=== PATIENT | male | born 1950 | race Caucasian/White ===

== ENCOUNTER 2018-05-26 16:10 | Emergency (ER) | payer MEDICARE ==
[2018-05-26 17:35] LABS: #Lymphocytes 1.1 thou/uL (1.20-3.40); #Monocytes 0.8 thou/uL (0.11-0.59); #Neutrophils 8.5 thou/uL (1.40-6.50); %Basophils 0.4 % (0.0-1.0); %Eosinophils 0.2 % (0.0-10.0); %Lymphocytes 10.7 % (21.0-51.0); %Neutrophils 80.6 % (42.0-75.0); Hemoglobin 13.5 g/dL (14.0-18.0); Mean Corpuscular Hemoglobin 32.8 pg (27.0-31.0); Mean Corpuscular Volume 96.7 fL (78.0-98.0); Mean Platelet Volume 9.2 fL (7.4-10.4); Platelet Count 156 thou/uL (130-400); RBC Distribution Width 13.3 % (11.5-14.5); White Blood Cell (WBC) Count 10.5 thou/uL (4.8-10.8)
[2018-05-26 17:43] LABS: PTT 25.8 SEC (22.9-36.1)
[2018-05-26 18:00] LABS: ALT (SGPT) 26 U/L (8-55); AST (SGOT) 22 U/L (5-34); Albumin 4.4 g/dL (3.4-4.8); Alkaline Phosphatase 59 U/L (40-150); Anion Gap 14 mmol/L (10-20); BUN (Urea Nitrogen) 27 mg/dL (8.4-25.7); Bilirubin, Total 0.8 mg/dL (0.2-1.2); Calc. Creatinine Clearance 0 mL/min (70-130); Calcium 9.7 mg/dL (7.8-10.44); Carbon Dioxide 24 mmol/L (23-31); Chloride 107 mmol/L (98-107); Estimated GFR-MDRD 88; Globulin 2.7 g/dL (2.4-3.5); Glucose 109 mg/dL (80-115); Protein, Total 7.1 g/dL (5.8-8.1); Sodium 141 mmol/L (136-145)
--- NOTE | 2018-05-26 18:36 | CT ---
CT CERVICAL SPINE WITHOUT CONTRAST: 05/26/18 HISTORY: Fall. Pain. COMPARISON: None. TECHNIQUE: CT cervical spine is performed without contrast. Reformatted images are submitted for interpretation. FINDINGS: No craniocervical dissociation. Lateral masses of C1 and C2 as well as the facets have appropriate ar ticulation. Intact odontoid process. Soft tissue neck structures are unremarkable. No prevertebral soft tissue swelling. Upper mediastinum and lung apices are also unremarkable. No high grade central canal stenosis. Varying degrees of foraminal narrowing due to degenerative baker ge. Evaluation is limited by technique. Sagittal reformatted images, there is mild straightening of the normal cervical lordosis which is pre sumed to be positional versus muscle spasm versus cervical collar placement. Current study is not stacey lored to assess for ligamentous injury. Cervical spine vertebral body height is maintained. There are no fractures. IMPRESSION: No fractures. POS: [facility]
[2018-05-26 18:53] LABS: CKMB 4.5 ng/mL (0-6.6); Troponin I Less than 0.010 ng/mL (< 0.028)
--- NOTE | 2018-05-26 19:24 | CT ---
HEAD CT WITHOUT CONTRAST 05/26/18 HISTORY: Patient fell last night. Patient has a small amount of blood in the nose. COMPARISON: None. TECHNIQUE: Noncontrast head CT is performed from skull base to skull vertex. FINDINGS: No parenchymal hemorrhage. No extra-axial hematoma. No midline shift. Basilar cisterns are patent. Br ain volume, age appropriate. Cortical barrett-white matter differentiation is preserved. Ventricles and sulci are patent and symmetric. White matter hypodensities due to chronic small vessel ischemic flores e are noted. The calvarium is intact. Adequate aeration of the mastoid air cells. There is partial opacification o f the right sphenoid sinus. There is hyperdense material in the right maxillary sinus with an air flu id level. Additional mixed attenuation is noted in the posterior nasal cavity. IMPRESSION: 1. No intracranial posttraumatic sequela. 2. Possible maxillofacial posttraumatic sequela. Refer to separate face CT report for further de tail. POS: [facility]
--- NOTE | 2018-05-26 20:07 | CT ---
MAXILLOFACIAL CT WITHOUT CONTRAST: 05/26/18 HISTORY: Patient fell last night. Patient on blood thinners. Patient feels like his nose is broken. Patient is still having a small amount of blood from the nose. COMPARISON: None. TECHNIQUE: Maxillofacial CT is performed in the axial plane. Reformatted images are submitted for interpretation . FINDINGS: The visualized brain parenchyma is unremarkable. Bilateral ocular lenses are appropriately located. B oth globes are intact. Retrobulbar fat is preserved. Symmetric attenuation of the optic nerve and ocu lar rectus muscles. There appears to be secretions/blood in the posterior nasal cavity as well as the nasopharynx. There are no obvious masses in the oral cavity. Midline fatty raphae of the tongue is preserved. Epiglottis has a normal caliber. The visualized prevertebral soft tissue structures are unremarkable. The visu alized parotid and submandibular glands are unremarkable. There is mild villous mandibularis changes noted. The mandible and maxilla are intact. Pterygoid plat es are intact. The osseous margins of the orbits are also intact. There is soft tissue attenuation in the right osteomeatal complex. Left osteomeatal complex is patent . There is mild mucosal disease in the left maxillary sinus, left frontal sinus and scattered through out the ethmoid air cells and right sphenoid sinus. There is an air fluid level with subtle hyperdens e material in the right maxillary sinus suggesting possible blood products. There appear to be bilate ral nasal bone fractures with soft tissue swelling. On the coronal reformatted images, the nasal sept um appears to be intact. Zygomatic arches are intact. IMPRESSION: Bilateral nasal bone fractures with associated soft tissue swelling. Posttraumatic blood in the nasal cavity and right maxillary sinus is noted. POS: [facility]
== END 2018-05-26 19:15 | disposition home or self-care (01) ==
LOC: ERS 16:10
DX: S02.2XXA Fracture of nasal bones, initial encounter for closed fracture (principal); E03.9 Hypothyroidism, unspecified; E78.5 Hyperlipidemia, unspecified; I10 Essential (primary) hypertension; F32.9 Major depressive disorder, single episode, unspecified; Z79.82 Long term (current) use of aspirin; Z79.899 Other long term (current) drug therapy; W18.30XA Fall on same level, unspecified, initial encounter
CPT/HCPCS: 70450; 70486; 72125; 80053; 82553; 84484; 85025; 85610; 85730; 93005

== ENCOUNTER 2019-01-11 08:06 | Outpatient (CLI) | payer MEDICARE ==
[~2019-01-11 08:06] MED LIST: Gadobenate Dimeglumine 529 MG/1 ML (20ML VIAL) ONE
--- NOTE | 2019-01-11 10:52 | MRI ---
MRI BRAIN WITH AND WITHOUT CONTRAST: Date: 01/11/19 HISTORY: Balance disorder. Tremors. COMPARISON: None. TECHNIQUE: MRI brain performed with and without intravenous Gadolinium administration. Multisequential, multipla erick imaging performed. FINDINGS: No hemorrhage on the axial gradient echo sequence. Calvarium has a normal T1 marrow signal intensity. Midline brain parenchymal structures are unremarka ble. No parenchymal mass, mass effect, or midline shift. Brain volume is age-appropriate. Cortical barrett-wh ite matter differentiation is preserved. Ventricles and sulci are patent and symmetric. T2 and FLAIR white matter hyperintensities due to chronic small vessel ischemic change of the white m atter. Minimal cavitary right frontal periventricular white matter lacunar infarct. Additionally, cavitation involving the left cerebellar hemisphere due to remote insult. Central arterial flow-voids are maintained. Absent restricted diffusion. Mild mucosal disease of the paranasal sinuses. No pathologic enhancement of the brain parenchyma. IMPRESSION: 1. Absent restricted diffusion. No acute infarct. 2. Chronic small vessel ischemic change of white matter. POS: [facility]
== END 2019-01-11 08:07 | disposition home or self-care (01) ==
LOC: BICMRI 08:06
PROVIDERS: ATTEND Internal Medicine
DX: R26.89 Other abnormalities of gait and mobility (principal); R25.1 Tremor, unspecified; H57.02 Anisocoria
CPT/HCPCS: 70553; 82274; A9577

== ENCOUNTER 2019-01-18 08:35 | Outpatient (CLI) | payer MEDICARE ==
--- NOTE | 2019-01-18 09:42 | ULT ---
RIGHT UPPER QUADRANT ULTRASOUND: INDICATION: Hepatic steatosis (fatty liver). FINDINGS: There is increased echogenicity of the imaged hepatic parenchyma. Portions of the liver are not well assessed due to decreased acoustic penetration notably at the left hepatic lobe. There is mild incr eased echogenicity of the gallbladder lumen and the gallbladder is partially contracted. This indica marlene sludge and/or gravel-like cholelithiasis. No significant gallbladder wall thickening. The commo n duct is partially obscured. Imaged aspects are nondilated measuring approximately 4 mm. No ascite s is seen. IMPRESSION: 1. Evidence of hepatic steatosis. 2. There is limited intraabdominal visualization at the right upper quadrant due to persistent areas of shadowing. 3. Probable gallbladder sludge versus gravel-like cholelithiasis. POS: [facility]
== END 2019-01-18 08:36 | disposition home or self-care (01) ==
LOC: BICULT 08:35
PROVIDERS: ATTEND Internal Medicine
DX: K76.0 Fatty (change of) liver, not elsewhere classified (principal); R74.0 Nonspecific elevation of levels of transaminase and lactic acid dehydrogenase [LDH]
CPT/HCPCS: 76705

== ENCOUNTER 2019-01-30 09:36 | Outpatient (CLI) | payer MEDICARE ==
--- NOTE | 2019-01-30 11:48 | ULT ---
ULTRASOUND DOPPLER DUPLEX CAROTID: DATE: 01-30-19 HISTORY: 68-year-old male with cerebral infarction. TECHNIQUE: Grayscale, color flow, and spectral analysis of major arteries of neck. FINDINGS: Pulse Doppler waveforms are normal. There is mild calcified plaque at the bilateral carotid bulbs. [facility] systolic velocities in the internal carotid arteries are 55 cm/s on the right and 50 cm/s on the left. ICA/CCA ratios are 0.8 on the right and 0.5 on the left. Vertebral artery flow is antegr rené bilaterally. IMPRESSION: 1. Mild atherosclerotic carotid plaque bilaterally. 2. No hemodynamically significant stenosis. POS: [facility]
== END 2019-01-30 09:37 | disposition home or self-care (01) ==
LOC: BICULT 09:36
PROVIDERS: ATTEND Internal Medicine
DX: I63.09 Cerebral infarction due to thrombosis of other precerebral artery (principal); I65.23 Occlusion and stenosis of bilateral carotid arteries
CPT/HCPCS: 93880

== ENCOUNTER 2019-04-06 13:55 | Outpatient (CLI) | payer MEDICARE ==
--- NOTE | 2019-04-06 15:09 | RAD ---
AP CHEST: HISTORY: MRI screening. FINDINGS: Postop sternotomy change. There is an electronic device overlying the left lower chest. The lungs a re clear. Vasculature is normal. IMPRESSION: Small electronic device, consistent with a loop recorder, identified, overlying the left chest. The chest is otherwise unremarkable. POS: [facility]
--- NOTE | 2019-04-06 15:55 | MRI ---
MRI LUMBAR SPINE WITHOUT CONTRAST: INDICATIONS: Sciatica, left side. Low back pain. TECHNIQUE: Multiplanar, multisequential imaging of the lumbar spine obtained. FINDINGS: Lumbar vertebrae maintain height and alignment. Degenerative disk and endplate changes are prominent at L4-L5 and at L5-S1. Loss of disk space at both these levels, most severe at L5-S1. Endplate marley ma at L4-L5, consistent with degenerative endplate change. At L1-L2, minimal disk bulge. No significant central canal or foraminal stenosis. At L2-L3, mild disk bulge. Facet and ligamentous hypertrophy is present. Posterior epidural fat. T hese changes result in mild central canal stenosis. At L3-L4, mild disk bulge. The posterior epidural fat is prominent, and there is mild to moderate fa cet and ligamentous hypertrophy. These changes compress the thecal sac, resulting in moderate centra l canal stenosis. At L4-L5, degenerative disk changes, as noted above, with a diffuse broad-based disk protrusion compr essing the thecal sac. Facet and ligamentous hypertrophy is prominent, and there is posterior epidur al fat. These changes compress the thecal sac, resulting in severe central canal stenosis. Bilatera l foraminal stenosis, more severe on the left. At L5-S1, severe degenerative disk change with loss of disk space. Posterior disk bulge and hypertro phic changes abut the thecal sac. Facet hypertrophy. No significant central canal stenosis. Bilate ral foraminal stenosis due to the hypertrophic change. IMPRESSION: 1. Degenerative disk and endplate changes are prominent at L4-L5 and at L5-S1. 2. Severe central canal stenosis at L4-L5, as described above. POS: [facility]
== END 2019-04-06 13:56 | disposition home or self-care (01) ==
LOC: BICMRI 13:55
PROVIDERS: ATTEND Internal Medicine
DX: M51.16 Intervertebral disc disorders with radiculopathy, lumbar region (principal); M51.37 Other intervertebral disc degeneration, lumbosacral region; M48.061 Spinal stenosis, lumbar region without neurogenic claudication
CPT/HCPCS: 71045; 72148

== ENCOUNTER 2019-06-12 09:19 | Emergency (ER) | payer MEDICARE ==
[2019-06-12] MEDS ORDERED: Lorazepam 2 MG/ML VIAL ONE (10:40)
[2019-06-12] MEDS ORDERED: Ondansetron PF 4 MG/2 ML Vial ONE (10:40)
[2019-06-12] MEDS ORDERED: Haloperidol Lactate 5 MG/ML VIAL ONE (10:40)
[2019-06-12 11:18] LABS: #Lymphocytes 0.5 thou/uL (1.20-3.40); #Monocytes 0.6 thou/uL (0.11-0.59); #Neutrophils 10.1 thou/uL (1.40-6.50); %Basophils 0.1 % (0.0-1.0); %Eosinophils 0.2 % (0.0-10.0); %Lymphocytes 4.8 % (21.0-51.0); %Neutrophils 89.9 % (42.0-75.0); Hemoglobin 13.7 g/dL (14.0-18.0); Mean Corpuscular Hemoglobin 32.9 pg (27.0-31.0); Mean Corpuscular Volume 96.9 fL (78.0-98.0); Mean Platelet Volume 8.2 fL (7.4-10.4); Platelet Count 118 thou/uL (130-400); RBC Distribution Width 13.6 % (11.5-14.5); Red Blood Cell (RBC) Count 4.16 mill/uL (4.70-6.10); White Blood Cell (WBC) Count 11.2 thou/uL (4.8-10.8)
[2019-06-12 11:19] LABS: Platelet Morphology Comment Appears Decreased; RBC Morphology Normal
[2019-06-12 11:21] LABS: Acetaminophen Less than 6.0 mcg/mL (10.0-30.0); Alcohol Less than 10 mg/dL (Less than 10); Salicylate Less than 8.0 mg/dL (15.0-30.0)
[2019-06-12 11:23] LABS: ALT (SGPT) 73 U/L (8-55); AST (SGOT) 78 U/L (5-34); Albumin 4.9 g/dL (3.4-4.8); Alkaline Phosphatase 74 U/L (40-150); Anion Gap 22 mmol/L (10-20); BUN (Urea Nitrogen) 16 mg/dL (8.4-25.7); Bilirubin, Total 1.2 mg/dL (0.2-1.2); CK (CPK) 540 U/L (30-200); Calc. Creatinine Clearance 0 mL/min (70-130); Calcium 10.4 mg/dL (7.8-10.44); Carbon Dioxide 22 mmol/L (23-31); Chloride 99 mmol/L (98-107); Estimated GFR-MDRD 67; Globulin 2.8 g/dL (2.4-3.5); Glucose 223 mg/dL (80-115); Lipase 66 U/L (8-78); Potassium 4.1 mmol/L (3.5-5.1); Protein, Total 7.7 g/dL (5.8-8.1); Sodium 139 mmol/L (136-145)
== END 2019-06-12 12:34 | disposition home or self-care (01) ==
LOC: ERS 09:19
DX: R25.1 Tremor, unspecified (principal); E03.9 Hypothyroidism, unspecified; E78.5 Hyperlipidemia, unspecified; I10 Essential (primary) hypertension; F32.9 Major depressive disorder, single episode, unspecified; Z79.82 Long term (current) use of aspirin; Z79.899 Other long term (current) drug therapy; Z79.01 Long term (current) use of anticoagulants
CPT/HCPCS: 36415; 36416; 80053; 80307; 82140; 82550; 83690; 84146; 84443; 85025; 96365; 96375; J1630; J2060; J2405; J3411; J3490

== ENCOUNTER 2019-08-03 20:05 | Inpatient (IN) | payer MEDICARE ==
[~2019-08-03 20:05] MED LIST changes: -Gadobenate Dimeglumine 529 MG/1 ML (20ML VIAL) ONE; +ISOVUE-370 76%-LOCM 1 ML ONE
[2019-08-03] MEDS ORDERED: Fentanyl 100 MCG/2 ML VIAL ONE (20:08)
[2019-08-03] MEDS ORDERED: fentaNYL Citrate/PF 2,000 MCG in Sodium Chloride 0.9% 60 ML IV SCH (20:11)
[2019-08-03] MEDS ORDERED: Norepinephrine 4 MG/4 ML VIAL ONE (20:16)
[2019-08-03 20:24] LABS: #Basophils 0.1 thou/uL (0.0-0.2); #Eosinphils 0.1 thou/uL (0.0-0.7); #Monocytes 0.9 thou/uL (0.11-0.59); #Neutrophils 6.3 thou/uL (1.40-6.50); %Basophils 0.7 % (0.0-1.0); %Eosinophils 1.1 % (0.0-10.0); %Lymphocytes 35.2 % (21.0-51.0); %Monocytes 7.9 % (0.0-10.0); %Neutrophils 55.2 % (42.0-75.0); Hemoglobin 13.1 g/dL (14.0-18.0); Mean Corpuscular HGB CONC 33.6 g/dL (32.0-36.0); Mean Corpuscular Hemoglobin 34.9 pg (27.0-31.0); Mean Platelet Volume 8.9 fL (7.4-10.4); Platelet Count 123 thou/uL (130-400); RBC Distribution Width 12.6 % (11.5-14.5); Red Blood Cell (RBC) Count 3.77 mill/uL (4.70-6.10); White Blood Cell (WBC) Count 11.4 thou/uL (4.8-10.8)
[2019-08-03] MEDS ORDERED: Norepinephrine 8 MG/250 ML BAG IVPB PRN (20:33)
--- NOTE | 2019-08-03 20:45 | RAD ---
PORTABLE CHEST: 08/03/19 PROVIDED CLINICAL HISTORY: Altered mental status. FINDINGS: Comparison 04/06/19. The cardiac silhouette appears enlarged, which may be at least partially on the basis of portable te chnique. Median sternotomy changes are noted. Endotracheal tube is noted, the tip of which projects slightly caudal to the level of the thoracic inlet. Interval right subclavian central line is noted, the tip of which projects over the expected location of right atrium. Enteric catheter is noted, tip of which overlies the left upper quadrant. No focal consolidation evident. The supine nature of the e xamination is limited in evaluation for pleural fluid or pneumothorax, without gross evidence for suc h. IMPRESSION: Lines and tubes as above. POS: [facility]
[2019-08-03 20:46] LABS: Actual Bicarbonate (HCO3a) 9.8 mEq/L (22-28); Analyzer IN Cardio ER; Base Excess (BEa) -19.6 mEq/L (-2.0 to +3.0); CO2 Tension 35.2 mmHg (35.0-45.0); Calcium, Ionized 1.15 mmol/L (1.12-1.30); Carboxyhemoglobin (COHb) 0.1 gm% (0.0-3.0); Hemoglobin (Hb) 13.6 g/dL (14.0-18.0); O2 Tension (PaO2) 283.3 mmHg (> 80.0)
[2019-08-03 20:48] LABS: ALT (SGPT) 182 U/L (8-55); AST (SGOT) 218 U/L (5-34); Albumin 4.2 g/dL (3.4-4.8); Alkaline Phosphatase 67 U/L (40-150); Anion Gap 25 mmol/L (10-20); BUN (Urea Nitrogen) 17 mg/dL (8.4-25.7); Bilirubin, Total 0.2 mg/dL (0.2-1.2); CK (CPK) 133 U/L (30-200); Calc. Creatinine Clearance 0 mL/min (70-130); Calcium 8.9 mg/dL (7.8-10.44); Carbon Dioxide 13 mmol/L (23-31); Chloride 106 mmol/L (98-107); Estimated GFR-MDRD Greater than 90; Globulin 2.1 g/dL (2.4-3.5); Glucose 219 mg/dL (80-115); Potassium 4.6 mmol/L (3.5-5.1); Protein, Total 6.3 g/dL (5.8-8.1); Sodium 139 mmol/L (136-145)
[2019-08-03] MEDS ORDERED: Nitroglycerin 100MG/250ML BOT 250 ML ONE (20:54)
[2019-08-03] MEDS ORDERED: Lidocaine 1% (PF) 30 ML VIAL ONE (20:54)
[2019-08-03] MEDS ORDERED: Heparin 25,000 units/D5W 500 ML IV SCH (21:00)
[2019-08-03 21:15] LABS: INR-International Normal Ratio 1.1; Prothrombin Time 13.9 SEC (12.0-14.7)
[2019-08-03 21:15] LABS: pH, Arterial 7.06 (7.35-7.45)
[2019-08-03 21:16] LABS: Puncture Site ALINE
[2019-08-03 21:16] LABS: PTT 30.9 SEC (22.9-36.1)
[2019-08-03 21:18] LABS: Bilirubin Negative (Negative); Blood, Urine Moderate (Negative); Glucose, Urine (Dipstick) 100 mg/dL (Negative); Leukocyte Negative (Negative); Nitrite Negative (Negative); Protein, Urine (Dipstick) 100 mg/dL (Neg-Trace); Urobilinogen 0.2 mg/dL (Less than 2)
[2019-08-03 21:21] LABS: Clarity Cloudy (Clear)
[2019-08-03 21:23] LABS: RBC/HPF 21-50 HPF (0-3); Squamous Epithelial 0-3 HPF (0-3); WBC/HPF 0-3 HPF (0-3)
[2019-08-03 21:24] LABS: Acetaminophen Less than 6.0 mcg/mL (10.0-30.0); Alcohol 297 mg/dL (Less than 10); Lipase 142 U/L (8-78); Magnesium 2.6 mg/dL (1.6-2.6); Salicylate Less than 8.0 mg/dL (15.0-30.0)
[2019-08-03 21:25] LABS: Bacteria/HPF 2+ HPF (None Seen)
[2019-08-03 21:26] LABS: Actual Bicarbonate (HCO3a) 12.7 mEq/L (22-28); Analyzer IN Cardio ER; Base Excess (BEa) -12.9 mEq/L (-2.0 to +3.0); CO2 Tension 29.1 mmHg (35.0-45.0); Calcium, Ionized 1.09 mmol/L (1.12-1.30); Carboxyhemoglobin (COHb) 0.4 gm% (0.0-3.0); Hemoglobin (Hb) 14.6 g/dL (14.0-18.0); Potassium - ABG Lab 3.99 mmol/L (3.70-5.30); pH, Arterial 7.26 (7.35-7.45)
[2019-08-03 21:29] LABS: Amphetamine Not Detected (NotDetected); Barbiturates Screen Not Detected (NotDetected); Benzodiazepine Screen Not Detected (NotDetected); Cocaine Metabolite Screen Not Detected (NotDetected); Medtox Control Line Valid? VALID (VALID); Medtox Reader # READER 4; Methadone Not Detected (NotDetected); Methamphetamine Not Detected (NotDetected); Opiate Screen Detected (NotDetected); Oxycodone Screen Not Detected (NotDetected); Phencyclidine (PCP) Not Detected (NotDetected); THC/Cannabinoid Screen Not Detected (NotDetected); Tricyclic Screen Not Detected (NotDetected)
--- NOTE | 2019-08-03 22:06 | CT ---
EXAM: CT brain without contrast HISTORY: Found down in bathtub with altered mental status. COMPARISON: 05/26/2018 TECHNIQUE: Multiple contiguous axial images were obtained and a CT of the brain without contrast. FINDINGS: There are scattered hypodensities in the subcortical and periventricular white matter consi stent with small vessel ischemic disease. There is no evidence of hydrocephalus, intracranial hemorrhage, or extra-axial fluid collection. The calvarium and overlying soft tissues are unremarkable. The visualized paranasal sinuses and masto id air cells are well aerated. IMPRESSION: No evidence of acute intracranial abnormality
[2019-08-03 22:07] LABS: ALV-art Gradient 315.025 (0-20); Puncture Site ALINE
--- NOTE | 2019-08-03 22:18 | CT ---
EXAM: CTA of the chest HISTORY: Found down in bathtub unresponsive COMPARISON: None TECHNIQUE: Multiple contiguous axial images were obtained a CTA of the chest with contrast per pulmon zach embolism protocol. 3-D oblique MIP reformats and direct coronal reformats were performed. FINDINGS: HEART: Normal in size without focal cardiac abnormality. PULMONARY ARTERIES: Normal in caliber without filling defects to suggest pulmonary emboli. MEDIASTINUM: No hilar or mediastinal lymphadenopathy. An endotracheal tube is seen in good position a siria the tali. LUNGS: Bibasilar atelectasis is seen. PLEURAL SPACE: No pleural effusion or pneumothorax. CHEST WALL SOFT TISSUES: There is a central venous catheter with its tip in the superior vena cava. VISUALIZED OSSEOUS STRUCTURES: The patient is status post sternotomy. Degenerative changes are seen i n the spine. There are fractures of the anterior right fifth and sixth ribs and of the left lateral sixth rib. IMPRESSION: No evidence of pulmonary thromboembolism 2. Bilateral rib fractures 3. Bibasilar atelectasis
--- NOTE | 2019-08-03 22:23 | CT ---
CT Abdomen Pelvis W Con: 08/03/2019 12:00 AM CLINICAL INFORMATION: Found down in bathtub with unresponsiveness COMPARISON: None. TECHNIQUE: Multiple contiguous axial images were obtained and a CT of the abdomen and pelvis with IV contrast. C oronal and sagittal reformats were performed. FINDINGS: Abdomen: Liver: within normal limits. Bile Ducts: Normal caliber. Gallbladder: No calcified gallstones. Normal caliber wall. Pancreas: within normal limits. Spleen: within normal limits. Adrenals: within normal limits. Kidneys: Bilateral cysts measuring up to 2.0 cm in size. Pelvis: Reproductive Organs: No pelvic masses. Ureters: within normal limits. Bladder: Contains a Franks catheter. Peritoneum: No ascites or free air, no fluid collection. Bowel: Normal caliber. NG tube seen in the stomach. Normal appendix. Scattered diverticula in the col on. Mesentery and Retroperitoneum: No enlarged mesenteric or retroperitoneal lymph nodes. Vessels: There is a left femoral arterial catheter. Atherosclerotic calcifications in the aorta. Abdominal Wall: within normal limits. Bones: Degenerative changes in the spine. IMPRESSION: 1. No evidence of acute intraabdominal or pelvic abnormality. 2. Diverticulosis 3. Bilateral renal cysts
[2019-08-03] MEDS ORDERED: Ventilator Sedation Protocol 1 EACH FS ONE (22:28)
[2019-08-03 22:29] LABS: INR-International Normal Ratio 1.1; PTT 35.5 SEC (22.9-36.1); Prothrombin Time 14.2 SEC (12.0-14.7)
[2019-08-03] MEDS ORDERED: DISCONTINUE PREVIOUS NARCOTIC PAIN MEDICATIONS AND BENZODIAZEPINES FS SCH (22:29)
[2019-08-03] MEDS ORDERED: Fentanyl BOLUS 250 ML IVPB PRN (22:29)
[2019-08-03] MEDS ORDERED: Propofol BOLUS 1,000 MG/100 ML VIAL IV PRN (22:29)
[2019-08-03] MEDS ORDERED: Morphine 2 MG/ML SYRINGE SLOW IVP PRN (22:29)
[2019-08-03] MEDS ORDERED: Ondansetron ODT 4 MG TAB PO PRN (22:30)
[2019-08-03] MEDS ORDERED: Ondansetron PF 4 MG/2 ML Vial IVP PRN (22:30)
[2019-08-03] MEDS ORDERED: Acetaminophen 650 MG Suppository PR PRN (22:30)
[2019-08-03] MEDS ORDERED: cefTRIAXone\\ROCEPHIN 1 GM VIAL ONE (22:37)
[2019-08-03] MEDS ORDERED: Aspirin Chewable 81 MG TAB ONE (22:37)
[2019-08-03] MEDS ORDERED: Propofol 1,000 MG/100 ML VIAL IV ONE (22:59)
[2019-08-03] MEDS ORDERED: Heparin 10,000 UNITS/ 10 ML VIAL SLOW IVP SCH (23:00)
[2019-08-03] MEDS ORDERED: Magnesium 2 GM/50 ML BAG (IN WATER) ONE (23:14)
[2019-08-04] MEDS: Sodium Chloride 0.9% 1,000 ML IV SCH ×2 (02:07→07:51)
--- NOTE | 2019-08-04 02:27 | CON ---
DATE OF CONSULTATION: 08/03/2019 REASON FOR CONSULTATION: [id number] cardiac arrest. HISTORY OF PRESENT ILLNESS: Mr. August Montiel is a 69-year-old gentleman, patient of Dr. Andrea Ma. The patient was at home, his heard him fall. She went to the other room and he was unresponsive. She went and immediately called her son and he recommended calling an ambulance, which was done. They arrived and the patient was in cardiac arrest. Chest compressions were started. The patient was intubated and chest compressions were done on the way here. The nurses indicated that the patient was very cyanotic on arrival here. The patient was subsequently ultimately successfully resuscitated. His initial rhythm was asystole. Ultimately, they were able to get him back to heart rhythm, but pulseless electrical activity and finally they were able to maintain sinus rhythm with a blood pressure. Arterial pH after he had been resuscitated for quite some time was 7.06 of pH. The pCO2 is 35 at that point. The patient remains unresponsive. PAST MEDICAL HISTORY: 1. History of coronary bypass grafting according to the notes x4. 2. History of unexplained stroke. He had a LINQ in place. REVIEW OF SYSTEMS: Obviously unobtainable. He is intubated and unresponsive. PHYSICAL EXAMINATION: The patient is unresponsive even to deep pain with some sternal pressure and also painful stimuli to the toes, there is no response. However, the nurse did indicate that he is somewhat breathing over the ventilator. LUNGS: Clear anterolaterally. Cardiac. He is tachycardic, . There is a 2/6 systolic murmur in the left mid sternal border. No diastolic murmur. No S3. ABDOMEN: Soft and nontender. EXTREMITIES: Warm and dry. No clubbing. No cyanosis or edema. He has good peripheral pulses. OTHER PERTINENT LABORATORY DATA: A repeat blood gas has been obtained and pH is over 7.2. He has received several episodes of bicarbonate. He does have a positive alcohol level of 297. An EKG did show severe ST depression in the anterior leads, but apparently that was when he was very acidotic. Now, the EKG has only mild nonspecific changes. ASSESSMENT: 1. A sudden loss of consciousness, very suspicious for dysrhythmia. 2. Asystole on arrival here. 3. Previous bypass surgery. 4. Possible myocardial infarction. no ST elevations at the present time. PLAN: 1. Continue supportive care. 2. Arrangements are being made to do CT of the head and chest. 3. Anticoagulation. 4. Cardiac enzymes. 5. Discussed with the family. It is unclear whether the patient will wake up after the hypoxic injury. These had occurred hopefully, he will become responsive. It is difficult to say at this point. In addition the elevated alcohol levels may be playing some role or only in his suppression, although the said he was awake and alert before he lost consciousness. Prognosis is very guarded. Unfortunately, has multiple negative prognostic findings including asystole on arrival, severe acidosis. He was pH 7.06 after being resuscitated, most likely was quite acidotic prior to that, more acidotic than this. Supportive care will be given. Job ID: [id number]
[2019-08-04 03:57] LABS: Band 11 % (5-11); Hemoglobin 14.6 g/dL (14.0-18.0); Lymphocytes 7 % (21-51); MDiff Complete? YES; Mean Corpuscular HGB CONC 33.4 g/dL (32.0-36.0); Mean Corpuscular Hemoglobin 33.9 pg (27.0-31.0); Mean Platelet Volume 9.7 fL (7.4-10.4); Monocytes 4 % (0-10); Neutrophil 78 % (42-75); Platelet Count 185 thou/uL (130-400); Platelet Morphology Comment Appears Adequate; RBC Distribution Width 12.9 % (11.5-14.5); Red Blood Cell (RBC) Count 4.31 mill/uL (4.70-6.10)
[2019-08-04 03:58] LABS: PTT Greater than 250.0 SEC (22.9-36.1)
[2019-08-04 04:29] LABS: Anion Gap 33 mmol/L (10-20); BUN (Urea Nitrogen) 24 mg/dL (8.4-25.7); Calc. Creatinine Clearance 58 mL/min (70-130); Calcium 8.9 mg/dL (7.8-10.44); Carbon Dioxide 8 mmol/L (23-31); Chloride 103 mmol/L (98-107); Estimated GFR-MDRD 50; Glucose 348 mg/dL (80-115); Potassium 2.6 mmol/L (3.5-5.1); Sodium 141 mmol/L (136-145)
[2019-08-04] MEDS ORDERED: NS 0.9% w/ 20 MEQ KCL 1,000 ML IV PRN ×2 (05:50)
[2019-08-04] MEDS ORDERED: CCU Electrolyte Replacement 1 EACH IVPB ONE (05:50)
[2019-08-04] MEDS ORDERED: D5 1/2 NS w/20 mEq KCL 1,000 ML IV PRN (05:50)
[2019-08-04] MEDS ORDERED: Dextrose 5 %-0.45 % NaCl 1,000 ML IV PRN (05:50)
[2019-08-04] MEDS ORDERED: Sodium Chloride 0.9% 1,000 ML IV PRN ×4 (05:50)
[2019-08-04] MEDS ORDERED: Magnesium 2 GM/50 ML 2 GM in Premix Bag 1 BAG IVPB PRN (05:53)
[2019-08-04] MEDS ORDERED: Potassium Chloride 20 MEQ TAB PO PRN (05:53)
[2019-08-04] MEDS ORDERED: Magnesium Oxide 400 MG TAB PO PRN ×2 (05:53)
[2019-08-04] MEDS ORDERED: Potassium Chloride 40 MEQ in Sodium Chloride 0.9% 250 ML 250 ML IVPB PRN (05:53)
[2019-08-04] MEDS ORDERED: CCU ELECTROLYTE REPLACEMENT PROTOCOL FS PRN (05:53)
[2019-08-04] MEDS ORDERED: Potassium Phosphate 9 MMOL in Sodium Chloride 0.9% 100 ML IVPB PRN (05:53)
[2019-08-04] MEDS ORDERED: Potassium Phosphate 15 MMOL in Sodium Chloride 0.9% 250 ML 250 ML IV PRN (05:53)
[2019-08-04] MEDS ORDERED: Potassium Phosphate 12 MMOL in Sodium Chloride 0.9% 250 ML 250 ML IV PRN (05:53)
[2019-08-04] MEDS ORDERED: PHOS-NAK 1 PKT PACK PO PRN ×2 (05:53)
[2019-08-04] MEDS ORDERED: HUMULIN R 100 UNITS in Sodium Chloride 0.9% 100 ML IVPB SCH ×2 (06:00→08:15)
[2019-08-04] MEDS: Vancomycin HCl 1.75 GM in Sodium Chloride 0.9% 500 ML IVPB SCH (06:19)
[2019-08-04] MEDS: Potassium Chloride 40 MEQ in Premix Bag 1 BAG IVPB PRN (06:39)
[2019-08-04 06:40] LABS: Anion Gap 32 mmol/L (10-20); BUN (Urea Nitrogen) 27 mg/dL (8.4-25.7); Calc. Creatinine Clearance 57 mL/min (70-130); Calcium 8.6 mg/dL (7.8-10.44); Chloride 105 mmol/L (98-107); Estimated GFR-MDRD 49; Glucose 297 mg/dL (80-115); Sodium 142 mmol/L (136-145)
[2019-08-04 06:45] LABS: Carbon Dioxide 8 mmol/L (23-31); Potassium 2.5 mmol/L (3.5-5.1)
[2019-08-04 06:46] LABS: Troponin I 0.153 ng/mL (< 0.028)
[2019-08-04 06:51] LABS: PTT Greater than 250.0 SEC (22.9-36.1)
--- NOTE | 2019-08-04 07:13 | HP ---
PRIMARY CARE DOCTOR: Lloyd Coleman MD. CODE STATUS: Full Code. TIME OF EVALUATION: 10:00 p.m. CHIEF COMPLAINT: Cardiac arrest. HISTORY OF PRESENT ILLNESS: This is a 69-year-old male patient with past medical history of hypothyroidism, hyperlipidemia, hypertension, history of stroke x2. The patient came to the hospital after being found in his bathtub in cardiac arrest. The EMS reported that the heard a noise from the patient's fall, he was pulseless. The patient received CPR and regained spontaneous circulation while en route to the hospital, was intubated. As noted, he also has a history of coronary artery disease and CABG. After stabilization in the ER, the patient had been stable, remains critical. Dr. Key was called because there was a concern for possible ST elevation. The EKG final consensus was that there was no ST elevation, although the etiology for the cardiac arrest seems to be cardiac mainly. There is no other significant findings on the workup to point out. REVIEW OF SYSTEMS: Unable to obtain as the patient is intubated and sedated. PAST MEDICAL HISTORY: As mentioned in the HPI. PAST SURGICAL HISTORY: 1. The patient had a surgery of the bursa to the left . 2. History of CABG x4 vessels. 3. History of tonsillectomy. 4. Vasectomy. PSYCHIATRIC HISTORY: Depression. SOCIAL HISTORY: The patient drinks socially every week. No drugs. No smoking history. Lives at home with family. Drinks socially. Drinks a glass of wine every other night. No drug use. No smoking. FAMILY HISTORY: Reviewed and noncontributory to current presentation. KNOWN ALLERGIES: No known drug allergies reported. MEDICATIONS: 1. Centrum. 2. Aspirin. 3. Atorvastatin. 4. Clopidogrel. 5. Isosorbide mononitrate. 6. Levothyroxine. 7. Losartan. 8. Metoprolol. 9. Amlodipine. 10. Propanol. PHYSICAL EXAMINATION: VITAL SIGNS: On presentation, heart rate 130, pain unable to rate, oxygen saturation 82 in the vent. This has corrected by the time I have examined the patient. GENERAL APPEARANCE: The patient is intubated and sedated. HEENT: Eyes; normal conjunctiva. Asymmetric pupils. Moist oral mucosae. Anicteric. No JVD. RESPIRATORY: Bilateral air entry. The patient is intubated. No rales. No wheezing. Symmetric expansion. CARDIOVASCULAR: The patient is tachycardic. No murmurs. No gallop. No edema. ABDOMEN: Soft. Normal bowel sounds. MUSCULOSKELETAL: Baseline range of motion and strength. SKIN: Warm and intact. No pallor. No rash. No redness. Capillary refill seems to be intact. NEURO: No evidence of any new focal weakness. Cranial nerves seems to be intact. IMAGING DATA: EKG show sinus tachycardia with first-degree AV block. Some EKG shows possible septal STEMI, this was discussed with Dr. Key, does not seems to be the case. Workup was done. Abdomen and pelvis CT showed no evidence of acute intraabdominal pelvic abnormalities, diverticulosis, bilateral renal cysts. Brain CT showed no evidence of acute intracranial abnormalities. Chest and thorax CTA showed no evidence of pulmonary thromboembolism, bilateral rib fractures, bibasilar atelectasis. X-ray, lines and tubes in the right position. LABORATORY DATA: Reviewed. The patient has a white count of 11.4, hemoglobin 13.1, MCV 104, platelet count 123. The second white count was 28. Coagulation; PT 14.2, INR 1.1, PTT 35, the second one greater than 50. Blood gas; pH 7.26, pCO2 of 29, PO2 of 219. Chemistry; sodium 141, potassium 2.6, chloride 103, carbon dioxide was 8, anion gap 33, BUN 24, creatinine 1.41, GFR initially greater than 50, then 50. Glucose initially 219, the second one 348. AST 218 and ALT 182. Beta natriuretic peptide 119, lipase 142. TSH 0.75. Urine was done and showed some rbc's, no white count. Toxicology; opioids were detected and plasma alcohol was 297. ASSESSMENT AND PLAN: The patient will be placed in the hospital with the following medical problems. Critical care time more than 35 minutes spent in bedside assessment, stabilization of the patient and discussion of the case with the ER physician, coordination of care, reconciliation of medications. 1. Cardiorespiratory arrest, unclear etiology. The patient fell into his bathtub. The patient got possible etiology is cardiac. Dr. Key was consulted. We will follow recommendations. The patient will be continued on life supporting monitor in critical care unit. 2. Respiratory failure due to cardiorespiratory arrest. Due to the patient has been intubated and has been placed in ICU Pulmonary has been consulted and we will follow recommendations. 3. Leukocytosis. The patient has leukocyte of 28 and the repeat CBC will be related to acute presentation of the cardiac arrest. However, the patient has been hypotensive, unclear if there is any underlying infection at this point and broad-spectrum antibiotics being started. 4. Possible underlying coronary artery disease. The first troponin was negative. EKG was questionable for acute myocardial infarction. The patient was started on heparin. Dr. Key is on the case. We will follow recommendations. 5. Metabolic acidosis likely secondary to cardiac arrest, lactic acidosis, and repeat labs. The patient now has a higher glucose level with decrease in carbon dioxide, so there is concern for diabetic ketoacidosis. For that reason, the patient has been started on diabetic ketoacidosis protocol. Beta-hydroxybutyrate has been ordered. 6. Moderate hypokalemia. Potassium was initially 4.6, now 2.6. We will replace electrolytes as per protocol in ICU. 7. Acute kidney injury. The patient initially has creatinine of 0.8, the second one is 1.4. This could be secondary to hypoperfusion from cardiorespiratory arrest. The patient is receiving fluids. We will monitor kidney function, and if not improving might need Nephrology for assistance with outpatient. 8. Mild elevation of liver function tests. This could be secondary to shock liver due to cardiorespiratory arrest. We will monitor and treat accordingly. 9. Alcohol intoxication. The patient presented with plasma alcohol of 297. The patient already receiving hydration, intubated. Continue to monitor in ICU. 10. Deep venous thrombosis prophylaxis. 11. Hyperlipidemia. Low-cholesterol diet is advised. Reconcile home medications. 12. Uncontrolled hypertension. The patient presented with hypotension. We will continue to monitor and treat accordingly. No blood pressure medications indicated at this point. 13. Deep venous thrombosis prophylaxis. The patient is on heparin drip. 14. Hypothyroidism. Continue hormone replacement. Job ID: [id number]
[2019-08-04] MEDS: Propofol 1,000 MG/100 ML VIAL IV PRN ×3 (07:50→23:45)
[2019-08-04 08:09] LABS: Actual Bicarbonate (HCO3a) 6.4 mEq/L (22-28); Base Excess (BEa) -21.1 mEq/L (-2.0 to +3.0); Calcium, Ionized 1.22 mmol/L (1.12-1.30); Carboxyhemoglobin (COHb) 0.6 gm% (0.0-3.0); Hemoglobin (Hb) 14.9 g/dL (14.0-18.0); O2 Tension (PaO2) 326.4 mmHg (> 80.0); Potassium - ABG Lab 2.54 mmol/L (3.70-5.30); pH, Arterial 7.11 (7.35-7.45)
[2019-08-04 08:10] LABS: CO2 Tension 20.4 mmHg (35.0-45.0); Puncture Site A-LINE
--- NOTE | 2019-08-04 08:21 | PRG ---
DATE OF SERVICE: 08/04/2019 SUBJECTIVE: Mr. Montiel remains intubated and unresponsive. There are some what appears to be involuntary, intermittent jerking. There is no purposeful movement. There is no response to pain. OBJECTIVE: VITAL SIGNS: His blood pressure 113/62, pulse is 90, and his temperature is 92 degrees Fahrenheit. LUNGS: Clear. CARDIAC: Normal S1, normal S2. ABDOMEN: Soft and nontender. EXTREMITIES: No edema. LABORATORY DATA: Troponin of 0.153. The patient is still acidotic with the carbon dioxide of 8. Glucose was 297. ASSESSMENT: 1. Cardiac arrest of unknown etiology. 2. Metabolic acidosis. 3. Underlying coronary artery disease. 4. No evidence of myocardial infarction as being any type of a primary event. 5. Previous stroke, but no evidence of any acute stroke prompting this admission. 6. Severe hypokalemia, potassium is 2.5. PLAN: 1. He is receiving potassium. 2. PT is over 200. We will stop heparin and change to enoxaparin. 3. Pulmonary consultation for Critical Care. 4. Continues on the cooling protocol, unfortunately long-term prognosis appears poor at this point. Job ID: [id number]
--- NOTE | 2019-08-04 08:58 | CON ---
DATE OF CONSULTATION: 08/04/2019 TIME SPENT: This is 40 minutes critical care time. REASON FOR CONSULTATION: Critical care management. HISTORY OF PRESENT ILLNESS: This is a 69-year-old male, who apparently sustained an [id number]-[id number] arrest at home. He was found in the bathtub. I have heard, he was probably down for at least 30 minutes. He regained spontaneous circulation while en route to the hospital. It was initially thought that he had an NM, but after correction of his acidosis, his EKG improved. He has been cooled overnight. He is on mechanical ventilation. PAST MEDICAL HISTORY: 1. Hypertension. 2. Hypothyroidism. 3. Hyperlipidemia. 4. Stroke x2. PAST SURGICAL HISTORY: 1. Left knee surgery. 2. Coronary artery bypass grafting surgery x4. 3. Tonsillectomy. 4. Vasectomy. PSYCHIATRIC HISTORY: Remarkable for depression. SOCIAL HISTORY: 1. Apparently, drinks socially every week. No illicit drug use per family report. 2. No tobacco abuse. FAMILY MEDICAL HISTORY: Unremarkable. MEDICATIONS: Prior to admission, 1. Centrum. 2. Aspirin. 3. Atorvastatin. 4. Plavix. 5. Isosorbide mononitrate. 6. Levothyroxine. 7. Losartan. 8. Metoprolol. 9. Amlodipine. 10. Propranolol. REVIEW OF SYSTEMS: Cannot be obtained as the patient is intubated. PHYSICAL EXAMINATION: VITAL SIGNS: Temperature 92.1, blood pressure 113/62 via art line, O2 saturation 100%, heart rate 91. Intake since admission 820, output 950. HEENT: Eyes are deviated upward. Pupils are 2 mm, poorly reactive. Oropharynx, ET tube in place. NECK: No adenopathy. No JVD. LUNGS: Coarse breath sounds. CARDIAC: S1, S2. Regular. ABDOMEN: Obese, soft, nontender. EXTREMITIES: No clubbing, cyanosis, or edema. LABORATORY DATA: ABG; pH of 7.11, pCO2 of 20, pO2 of 326. White blood cell count 28.0, hematocrit 43.7, and platelet count 185. PTT of greater than 250. Sodium 142, potassium 2.5, chloride 105, CO2 of 8, BUN 27, creatinine 1.4, glucose 297. Troponin 0.153. BNP 119. Lipase 142. TSH 0.75. Urinalysis shows glucosuria and proteinuria. Tox screen showed alcohol level of 297. Positive screen for opiates. Beta-hydroxybutyrate 3.4. IMAGING STUDIES: His CT of the chest was essentially negative. Chest x-ray shows no mass, effusion, or infiltrate. ET tube is in good position. He has a right subclavian central line. Abdominal CT was negative. Brain CT was negative. ASSESSMENT: 1. Anoxic encephalopathy. 2. Status post prolonged cardiac arrest. 3. I believe the arrest is probably secondary to alcohol poisoning/intoxication combined with opioid use. 4. Acute respiratory failure requiring mechanical ventilation. 5. Severe metabolic acidosis. 6. Concurrent diabetic ketoacidosis. PLAN: 1. Use insulin drip to correct blood sugar. 2. Start bicarbonate drip to try to correct pH. 3. Monitor blood gas. 4. I gave the patient some potassium. 5. Recheck labs this afternoon. 6. Agree with antibiotics. Job ID: [id number]
[2019-08-04] MEDS ORDERED: Vancomycin HCl 1 GM in Premix Bag 1 BAG IVPB SCH (09:00)
[2019-08-04 09:33] LABS: Anion Gap 22 mmol/L (10-20); BUN (Urea Nitrogen) 30 mg/dL (8.4-25.7); Calc. Creatinine Clearance 59 mL/min (70-130); Calcium 8.4 mg/dL (7.8-10.44); Carbon Dioxide 13 mmol/L (23-31); Chloride 108 mmol/L (98-107); Estimated GFR-MDRD 50; Glucose 323 mg/dL (80-115); Potassium 3.1 mmol/L (3.5-5.1); Sodium 140 mmol/L (136-145)
[2019-08-04 09:40] LABS: Lactic Acid 4.1 mmol/L (0.5-2.2)
[2019-08-04] MEDS ORDERED: Norepinephrine 8 MG/250 ML BAG IVPB PRN (09:44)
[2019-08-04] MEDS: Cefepime 1 GM in Sodium Chloride 0.9% 100 ML IVPB SCH ×2 (10:00→20:31)
[2019-08-04] MEDS: Enoxaparin Sodium 40 MG/0.4 ML SYRINGE SC SCH ×2 (10:00→20:30)
[2019-08-04] MEDS: Famotidine/PF 20 mg/2ml Vial SLOW IVP SCH ×2 (10:00→20:30)
[2019-08-04] MEDS: Aspirin 81 mg Enteric Coated Tablet PO SCH (10:00)
[2019-08-04] MEDS: Sodium Bicarbonate 70 MEQ in Sodium Chloride 0.45% 1,000 ML IV SCH ×2 (10:01→19:15)
[2019-08-04] MEDS ORDERED: Potassium Chloride 40 MEQ in Premix Bag 1 BAG IVPB SCH (12:00)
--- NOTE | 2019-08-04 13:08 | PRG ---
DATE OF SERVICE: 08/04/2019 SUBJECTIVE: The patient is intubated, sedated. He is nonverbal. PHYSICAL EXAMINATION: VITAL SIGNS: Pulse 110; BP 167/94, up from 114/81; respirations 25 to 28; O2 saturation 100% on the ventilator; and temperature in the bladder is 92.1. GENERAL APPEARANCE: Sedated, intubated. HEART: Tachy, but regular. LUNGS: Clear bilaterally anteriorly. ABDOMEN: Soft, nondistended. Diminished bowel sounds. EXTREMITIES: Cool to touch without significant edema. NEUROLOGIC: The patient has gag reflex. He is breathing above the vent. His pupils are pinpoint, fixed, but he does have some corneal reflex. He is occasionally having some brief convulsive activity which appears to be possibly some posturing. LABORATORY DATA: Most recent pH 7.11, potassium is up to 3.1, creatinine is 1.4 with GFR of 50, lactic acid 4.1, beta hydroxybutyrate 4.29. IMPRESSION AND PLAN: 1. Anoxic brain injury. The patient had an episode of apnea and asystole, had CPR with ROSC. He appears to have suffered some degree of brain injury, although the extent is not yet clear. It is certainly worrisome that it is extensive. He is on a hypothermia protocol and I see on the ventilator. He is currently off sedation. Most likely source relates to significant alcohol level along with the recent addition of Tylenol No.3 for some oral surgery, likely leading to this episode of apnea, has no evidence of significant underlying cardiac source. 2. Severe acidosis. The patient has elevated ketones, likely as a combination of starvation alcoholic and diabetic type ketoacidosis. The patient is not a known diabetic. He does not take insulin on a regular basis, but it is concerning that he may have had an acute pancreatic injury with the episode of hypoxia. Lipase was slightly elevated. Regardless, the patient is on a bicarb drip. He is on an insulin drip and we will continue with managing the insulin per the DKA type protocol. 3. Hypokalemia. The patient had severe hypokalemia at presentation. It is improving with improvement of the acidosis and supplementation. We will continue to pursue that course. 4. Acute alcohol intoxication. The patient drinks 3 to 4 glasses of wine per day. According to his , certainly clouding the picture with the neurologic exam, although should be much improved by now. 5. Long discussion with the patient's family. They understand the patient sustained bilateral rib fractures and oxygen deprivation to all of his organs as a result of this episode. We will continue to provide supportive care. Try to treat the metabolic issue such as the electrolyte abnormalities and acidosis and allowed the toxins to clear with the alcohol and opioids. At this time, no further imaging or electrophysiologic testing would be helpful. Once the other issues have been resolved, may be able to repeat some imaging or do EEGs at that time. However, at this point, we will continue providing supportive care. The family will be contemplating being more proactive regarding future care. 6. Significant leukocytosis without specific source of infection identified. He is currently empirically on vancomycin and cefepime. Job ID: [id number]
[2019-08-04 13:10] LABS: Anion Gap 21 mmol/L (10-20); BUN (Urea Nitrogen) 32 mg/dL (8.4-25.7); Calc. Creatinine Clearance 58 mL/min (70-130); Calcium 8.4 mg/dL (7.8-10.44); Carbon Dioxide 13 mmol/L (23-31); Chloride 111 mmol/L (98-107); Estimated GFR-MDRD 50; Glucose 232 mg/dL (80-115); Sodium 142 mmol/L (136-145)
[2019-08-04 13:45] LABS: Potassium 2.8 mmol/L (3.5-5.1)
[2019-08-04 16:29] LABS: Anion Gap 18 mmol/L (10-20); BUN (Urea Nitrogen) 33 mg/dL (8.4-25.7); Calc. Creatinine Clearance 66 mL/min (70-130); Calcium 8.6 mg/dL (7.8-10.44); Carbon Dioxide 17 mmol/L (23-31); Chloride 111 mmol/L (98-107); Estimated GFR-MDRD 58; Glucose 113 mg/dL (80-115); Potassium 3.5 mmol/L (3.5-5.1); Sodium 142 mmol/L (136-145)
[2019-08-04] MEDS: Lorazepam 2 MG/ML VIAL SLOW IVP PRN (20:30)
[2019-08-04 21:50] LABS: Anion Gap 18 mmol/L (10-20); BUN (Urea Nitrogen) 34 mg/dL (8.4-25.7); Calc. Creatinine Clearance 69 mL/min (70-130); Calcium 8.4 mg/dL (7.8-10.44); Carbon Dioxide 16 mmol/L (23-31); Chloride 110 mmol/L (98-107); Estimated GFR-MDRD 61; Glucose 162 mg/dL (80-115); Potassium 3.7 mmol/L (3.5-5.1); Sodium 140 mmol/L (136-145)
[2019-08-05 00:49] LABS: Anion Gap 16 mmol/L (10-20); BUN (Urea Nitrogen) 36 mg/dL (8.4-25.7); Calc. Creatinine Clearance 76 mL/min (70-130); Calcium 8.7 mg/dL (7.8-10.44); Carbon Dioxide 19 mmol/L (23-31); Chloride 109 mmol/L (98-107); Estimated GFR-MDRD 68; Glucose 182 mg/dL (80-115); Potassium 3.7 mmol/L (3.5-5.1); Sodium 140 mmol/L (136-145)
[2019-08-05] MEDS: Propofol 1,000 MG/100 ML VIAL IV PRN ×4 (05:00→22:35)
[2019-08-05 05:08] LABS: Band 5 % (5-11); Hemoglobin 11.6 g/dL (14.0-18.0); MDiff Complete? YES; Mean Corpuscular HGB CONC 35.1 g/dL (32.0-36.0); Mean Corpuscular Hemoglobin 34.8 pg (27.0-31.0); Mean Corpuscular Volume 99.3 fL (78.0-98.0); Mean Platelet Volume 10.6 fL (7.4-10.4); Metamyelocyte 1 % (0-0); Monocytes 4 % (0-10); Neutrophil 90 % (42-75); Platelet Count 118 thou/uL (130-400); Platelet Morphology Comment Appears Decreased; RBC Morphology Normal; Red Blood Cell (RBC) Count 3.34 mill/uL (4.70-6.10); White Blood Cell (WBC) Count 16.8 thou/uL (4.8-10.8)
[2019-08-05 05:13] LABS: ALT (SGPT) 190 U/L (8-55); AST (SGOT) 214 U/L (5-34); Albumin 3.5 g/dL (3.4-4.8); Alkaline Phosphatase 70 U/L (40-150); Anion Gap 16 mmol/L (10-20); BUN (Urea Nitrogen) 34 mg/dL (8.4-25.7); Bilirubin, Total 0.5 mg/dL (0.2-1.2); Calc. Creatinine Clearance 71 mL/min (70-130); Calcium 8.8 mg/dL (7.8-10.44); Carbon Dioxide 21 mmol/L (23-31); Chloride 106 mmol/L (98-107); Estimated GFR-MDRD 63; Globulin 2.2 g/dL (2.4-3.5); Glucose 167 mg/dL (80-115); Potassium 3.6 mmol/L (3.5-5.1); Protein, Total 5.7 g/dL (5.8-8.1); Sodium 139 mmol/L (136-145)
[2019-08-05 06:55] LABS: Actual Bicarbonate (HCO3a) 17.9 mEq/L (22-28); Calcium, Ionized 1.12 mmol/L (1.12-1.30); Carboxyhemoglobin (COHb) 0.4 gm% (0.0-3.0); Hemoglobin (Hb) 11.4 g/dL (14.0-18.0); O2 Tension (PaO2) 97.6 mmHg (> 80.0); Potassium - ABG Lab 3.78 mmol/L (3.70-5.30)
[2019-08-05 07:03] LABS: CO2 Tension 19.1 mmHg (35.0-45.0); pH, Arterial 7.59 (7.35-7.45)
[2019-08-05 07:04] LABS: ALV-art Gradient 235.025 (0-20); Puncture Site A-LINE
[2019-08-05] MEDS: Metoprolol Tartrate 5 MG/5 ML VIAL IVP PRN ×3 (07:20→20:31)
--- NOTE | 2019-08-05 07:41 | RAD ---
EXAM: Portable chest PROVIDED CLINICAL HISTORY: Respiratory insufficiency COMPARISON: 08/03/2019 FINDINGS: Significant interval change with respect to the prior examination is not apparent. Bibasilar subsegme ntal atelectatic changes are seen. IMPRESSION: As above.
[2019-08-05] MEDS: Sodium Bicarbonate 70 MEQ in Sodium Chloride 0.45% 1,000 ML IV SCH (08:19)
[2019-08-05] MEDS: Vancomycin HCl 1.75 GM in Sodium Chloride 0.9% 500 ML IVPB SCH (08:25)
--- NOTE | 2019-08-05 08:40 | PRG ---
DATE OF SERVICE: 08/05/2019 SUBJECTIVE: Mr. Montiel remains unresponsive on the ventilator. He does not have any purposeful movement. REVIEW OF SYSTEMS: Not obtainable. OBJECTIVE: VITAL SIGNS: Blood pressure 159/103, pulse 120 and sinus tachycardia. LUNGS: Clear. CARDIAC: Tachycardic. ABDOMEN: Soft and nontender. LABORATORY DATA: Hemoglobin is 11.6. Glucose 178, AST 214. ASSESSMENT: 1. Status post cardiac arrest, which we now suspect may have been due to respiratory arrest. 2. Sinus tachycardia. 3. Hypertension. 4. Coronary artery disease, previous bypass. PLAN: 1. Add low-dose beta-blockers. 2. Prognosis looks extremely poor. 3. Dr. Ma to resume cardiac care tomorrow. Job ID: [id number]
[2019-08-05] MEDS: Cefepime 1 GM in Sodium Chloride 0.9% 100 ML IVPB SCH ×2 (08:51→20:31)
[2019-08-05] MEDS: Enoxaparin Sodium 40 MG/0.4 ML SYRINGE SC SCH ×2 (08:51→20:31)
[2019-08-05] MEDS: Aspirin 81 mg Enteric Coated Tablet PO SCH (08:52)
[2019-08-05] MEDS: Famotidine/PF 20 mg/2ml Vial SLOW IVP SCH ×2 (08:52→20:31)
[2019-08-05] MEDS ORDERED: Dextrose 5% in Water 1,000 ML IV PRN (09:50)
[2019-08-05] MEDS ORDERED: Dextrose 50% Abboject 50 ML SYRINGE SLOW IVP PRN (09:50)
[2019-08-05] MEDS ORDERED: EPINEPHrine 1 MG/10 ML Abboject SYRINGE ONE (10:00)
[2019-08-05] MEDS ORDERED: Sodium Bicarb 50 MEQ/50 ML Abboject 8.4% SYRINGE ONE (10:00)
[2019-08-05] MEDS: Dextrose 5 %-0.45 % NaCl 1,000 ML IV SCH (10:09)
--- NOTE | 2019-08-05 10:23 | PRG ---
DATE OF SERVICE: 08/05/2019 This is 35 minutes critical care time. SUBJECTIVE: The patient remains intubated on mechanical ventilation. There have been no changes in neurologic status overnight. PHYSICAL EXAMINATION: VITAL SIGNS: Temperature is 98.6, pulse 123, blood pressure 159/103. He is off the Levophed drip. He is currently on a bicarbonate drip. A 24-hour intake was 3354, output 1554. Weight 160 pounds. HEENT: Pupils are 2 mm, pinpoint, unreactive. No extraocular movements. He does have a gag reflex. NECK: No adenopathy or JVD. LUNGS: Coarse breath sounds. CARDIAC: S1 and S2, tachycardic. ABDOMEN: Soft, nontender, and nondistended. EXTREMITIES: No clubbing, cyanosis, or edema. NEUROLOGIC: Does not withdrawal to pain. Exam was done off sedation. LABORATORY DATA: White blood cell count 16.8, hematocrit 33.2, platelet count 118. A pH of 7.59, pCO2 of 19, pO2 of 97, SIMV rate 28, tidal volume 500, PEEP 5, pressure support 10, FiO2 of 50%. Sodium 139, potassium 3.6, chloride 106, CO2 of 21, BUN 34, creatinine 1.1, glucose 167. AST 214 and ALT 190. IMAGING STUDIES: Chest x-ray shows no acute infiltrates. ASSESSMENT: 1. Status post prolonged cardiopulmonary arrest. 2. Alcohol poisoning in conjunction with opioid use. 3. Anoxic brain injury, not improved. 4. Metabolic acidosis, improved. 5. Diabetic ketoacidosis. PLAN: 1. I will go ahead and switch him over to sliding scale insulin with NPH for continuous coverage. 2. Adjust mechanical ventilation rate. 3. Change IV fluids. 4. Discontinue art-line. 5. Discontinue vancomycin and Levophed. 6. Updated family on the patient's clinical course. The plan is to extubate, terminally Tuesday if he has not improved within that 72-hour window. The patient was made DNR yesterday. I believe his prognosis is dismal. Job ID: [id number]
[2019-08-05] MEDS: Insulin Regular 300 UNITS/3 ML VIAL SC PRN ×2 (12:38→18:49)
[2019-08-05] MEDS: Lorazepam 2 MG/ML VIAL SLOW IVP PRN (12:49)
[2019-08-05] MEDS: Acetaminophen 325 MG TAB PO PRN (12:50)
[2019-08-05] MEDS: NPH, Human Insulin Isophane 300 UNIT/3 ML VIAL SC SCH (20:31)
[2019-08-06] MEDS: Insulin Regular 300 UNITS/3 ML VIAL SC PRN ×4 (00:39→21:00)
[2019-08-06] MEDS: Dextrose 5 %-0.45 % NaCl 1,000 ML IV SCH (03:58)
[2019-08-06] MEDS: Propofol 1,000 MG/100 ML VIAL IV PRN ×2 (03:58→20:44)
[2019-08-06 04:38] LABS: Band 12 % (5-11); Hemoglobin 9.1 g/dL (14.0-18.0); Lymphocytes 3 % (21-51); MDiff Complete? YES; Mean Corpuscular HGB CONC 34.7 g/dL (32.0-36.0); Mean Corpuscular Hemoglobin 34.5 pg (27.0-31.0); Mean Corpuscular Volume 99.4 fL (78.0-98.0); Mean Platelet Volume 6.3 fL (7.4-10.4); Monocytes 5 % (0-10); Neutrophil 80 % (42-75); Platelet Count 90 thou/uL (130-400); Platelet Morphology Comment Appears Decreased; RBC Distribution Width 13.1 % (11.5-14.5); Red Blood Cell (RBC) Count 2.64 mill/uL (4.70-6.10); White Blood Cell (WBC) Count 14.1 thou/uL (4.8-10.8)
[2019-08-06 04:43] LABS: ALT (SGPT) 117 U/L (8-55); AST (SGOT) 144 U/L (5-34); Albumin 3.2 g/dL (3.4-4.8); Alkaline Phosphatase 67 U/L (40-150); Anion Gap 15 mmol/L (10-20); BUN (Urea Nitrogen) 34 mg/dL (8.4-25.7); Bilirubin, Total 0.5 mg/dL (0.2-1.2); Calc. Creatinine Clearance 68 mL/min (70-130); Calcium 8.9 mg/dL (7.8-10.44); Carbon Dioxide 21 mmol/L (23-31); Chloride 108 mmol/L (98-107); Estimated GFR-MDRD 58; Globulin 2.2 g/dL (2.4-3.5); Glucose 183 mg/dL (80-115); Potassium 3.3 mmol/L (3.5-5.1); Protein, Total 5.4 g/dL (5.8-8.1); Sodium 141 mmol/L (136-145)
[2019-08-06] MEDS: Metoprolol Tartrate 5 MG/5 ML VIAL IVP PRN ×2 (04:45→14:48)
[2019-08-06] MEDS: Potassium Chloride 40 MEQ in Premix Bag 1 BAG IVPB PRN (05:30)
[2019-08-06 07:25] LABS: Actual Bicarbonate (HCO3a) 21.9 mEq/L (22-28); Base Excess (BEa) -0.4 mEq/L (-2.0 to +3.0); CO2 Tension 27.7 mmHg (35.0-45.0); Calcium, Ionized 1.17 mmol/L (1.12-1.30); Carboxyhemoglobin (COHb) 0.8 gm% (0.0-3.0); Hemoglobin (Hb) 9.7 g/dL (14.0-18.0); pH, Arterial 7.52 (7.35-7.45)
[2019-08-06 07:31] LABS: ALV-art Gradient 195.975 (0-20); O2 Tension (PaO2) 54.6 mmHg (> 80.0); Puncture Site RBA
--- NOTE | 2019-08-06 08:39 | PRG ---
DATE OF SERVICE: 08/06/2019 TIME SPENT: 35 minutes critical time. SUBJECTIVE: The patient remains intubated on mechanical ventilation. There has been no changes in neurologic status overnight. OBJECTIVE: VITAL SIGNS: Temperature is 100.3, pulse is 111, blood pressure is 177/102, 24-hour intake 2428, output 1274. HEENT: He has severe conjunctival edema. He has an orotracheal tube in place. NECK: No adenopathy or JVD. LUNGS: Clear anteriorly. CARDIAC: S1 and S2. Tachycardic. ABDOMEN: Soft. EXTREMITIES: He has no reflex withdrawal to pain. LABORATORY DATA: White blood cell count 14, hematocrit 26.3, and platelet count 90. PH of 7.52, pCO2 of 27, pO2 of 55 on SIMV rate 10, tidal volume 500, PEEP 5, pressure support 10, FiO2 of 40%. Sodium 141, potassium 3.3, chloride 108, CO2 of 21, BUN 34, creatinine 1.2, glucose 183, AST 144, ALT 117. ASSESSMENT: 1. Anoxic brain injury after prolonged cardiopulmonary arrest. 2. Respiratory failure, requiring mechanical ventilation. PLAN: The situation is unlikely to improve. I met with family yesterday. We agree to continue until tomorrow and then make a decision in regard to withdrawal of care. I will get an EEG today for supporting data for the anoxic brain injury. The patient does not have complete brain based on my exam. He has continued spontaneous respirations and a cough reflex. Job ID: [id number]
[2019-08-06] MEDS ORDERED: Vecuronium 10 MG VIAL IV SCH (09:15)
[2019-08-06] MEDS ORDERED: Vecuronium 10 MG VIAL ONE (09:16)
[2019-08-06] MEDS ORDERED: Sterile Water 10 ML ONE (09:16)
--- NOTE | 2019-08-06 09:33 | RAD ---
CHEST 1 VIEW: HISTORY: Pneumonia. COMPARISON: Radiograph of the prior day. FINDINGS: The patient is intubated with endotracheal tube tip above the tali approximately 2.2 cm. Enteric t ube tip at the gastric body. There is lung hypoinflation and atelectatic changes throughout the lungs. No pneumothorax. Mild marley ma. IMPRESSION: Similar examination of the chest. POS: [facility]
[2019-08-06] MEDS: Famotidine/PF 20 mg/2ml Vial SLOW IVP SCH ×2 (10:49→20:45)
[2019-08-06] MEDS: Aspirin 81 mg Enteric Coated Tablet PO SCH (10:50)
[2019-08-06] MEDS: Cefepime 1 GM in Sodium Chloride 0.9% 100 ML IVPB SCH ×2 (10:50→20:45)
[2019-08-06] MEDS: NPH, Human Insulin Isophane 300 UNIT/3 ML VIAL SC SCH ×2 (10:55→20:46)
[2019-08-06] MEDS: Enoxaparin Sodium 40 MG/0.4 ML SYRINGE SC SCH ×2 (11:00→20:59)
--- NOTE | 2019-08-06 11:58 | PDOC.CPN ---
- Subjective Date: 08/06/19 Time: 11:58 Interval history: He remains unresponsive to any stimuli. - Review of Systems ROS unobtainable: due to endotracheal tube - Objective Allergies/Adverse Reactions: Allergies Allergy/AdvReac Type Severity Reaction Status Date / Time No Known Allergies Allergy Verified 08/04/19 00:58 Visit Medications: Current Medications Acetaminophen (Tylenol) 650 mg PO Q4H PRN PRN Reason: Headache/Fever/Mild Pain (1-3) Last Admin: 08/05/19 12:50 Dose: 650 mg Acetaminophen (Tylenol) 650 mg MI Q4H PRN PRN Reason: Headache/Fever/Mild Pain (1-3) Aspirin (Ecotrin) 81 mg PO DAILY [facility] Last Admin: 08/06/19 10:50 Dose: 81 mg Dextrose/Water (Dextrose 50%) 25 gm SLOW IVP PRN PRN PRN Reason: Hypoglycemia Enoxaparin Sodium (Lovenox) 40 mg SC 0900,2100 [facility] Last Admin: 08/06/19 11:00 Dose: 40 mg Famotidine (Pepcid) 20 mg SLOW IVP BID [facility] Last Admin: 08/06/19 10:49 Dose: 20 mg Glucagon (Glucagon) 1 mg IM PRN PRN PRN Reason: Hypoglycemia Fentanyl Citrate 2,000 mcg/ (Sodium Chloride) 100 mls @ 0 mls/hr IV INF BALBIR; Protocol Stop: 09/02/19 20:11 Fentanyl Citrate (Fentanyl Bolus) 250 mls @ 0 mls/hr IVPB PRN PRN PRN Reason: Breakthrough pain/agitation Stop: 09/02/19 22:29 Potassium Chloride/Sodium Chloride (Ns 0.9% W/ 20 Meq Kcl) 1,000 mls @ 500 mls/ hr IV .Q2H PRN; Protocol PRN Reason: Step 2 of DKA Protocol Potassium Chloride 40 meq/ (Sodium Chloride) 270 mls @ 135 mls/hr IVPB ASDIR PRN PRN Reason: FOR SERUM K+ 2.5 - 3.5 Potassium Chloride 40 meq/ (Device) 100 mls @ 50 mls/hr IVPB ASDIR PRN PRN Reason: FOR SERUM K+ 2.5 - 3.5 Last Admin: 08/06/19 05:30 Dose: 100 mls Magnesium Sulfate 1 gm/ Sodium (Chloride) 102 mls @ 102 mls/hr IV PRN PRN PRN Reason: MAG LEVEL 1.4 - 2.0 Magnesium Sulfate 2 gm/ Device 50 mls @ 50 mls/hr IVPB ASDIR PRN PRN Reason: MAGNESIUM < 1.4 Potassium Phosphate 9 mmol/ (Sodium Chloride) 103 mls @ 25.75 mls/hr IVPB ASDIR PRN PRN Reason: Phosphate 1.0-1.8 Potassium Phosphate 12 mmol/ (Sodium Chloride) 254 mls @ 63.5 mls/hr IV ASDIR PRN PRN Reason: Serum phosphate 0.5-0.9 Potassium Phosphate 15 mmol/ (Sodium Chloride) 255 mls @ 63.75 mls/hr IV ASDIR PRN PRN Reason: Serum Phos < 0.5 Cefepime HCl 1 gm/ Sodium (Chloride) 100 mls @ 200 mls/hr IVPB Q12HR [facility] Last Admin: 08/06/19 10:50 Dose: 100 mls Dextrose/Sodium Chloride (D5 1/2 Ns) 1,000 mls @ 50 mls/hr IV .Q20H [facility] Last Admin: 08/06/19 03:58 Dose: 1,000 mls Dextrose/Water (D5w) 1,000 mls @ 0 mls/hr IV .Q0M PRN PRN Reason: Hypoglycemia Insulin Human NPH (Humulin N) 20 unit SC BID [facility] Last Admin: 08/06/19 10:55 Dose: 20 units Insulin Human Regular (Humulin R) 0 units SC .AGGRESSIVE SLIDING PRN PRN Reason: Aggressive Sliding Scale Last Admin: 08/06/19 10:52 Dose: 3 unit Lorazepam (Ativan) 2 mg SLOW IVP Q1H PRN PRN Reason: Breakthrough agitation Stop: 09/02/19 22:29 Last Admin: 08/05/19 12:49 Dose: 2 mg Magnesium Oxide (Magnesium Oxide) 400 mg PO BIDPRN PRN PRN Reason: FOR SERUM MAG 1.4 - 2.0 Magnesium Oxide (Magnesium Oxide) 800 mg PO PRN PRN PRN Reason: FOR SERUM MAG < 1.4 Metoprolol Tartrate (Lopressor) 2.5 mg IVP Q4H PRN PRN Reason: To Control Heart Rate Last Admin: 08/06/19 04:45 Dose: 2.5 mg Miscellaneous Medication (Phos-Nak) 1 pkt PO TIDPRN PRN PRN Reason: FOR PHOS LEVEL 1.0 - 1.8 Miscellaneous Medication (Phos-Nak) 2 pkt PO TIDPRN PRN PRN Reason: FOR PHOS LEVEL 0.5 - 1.0 Morphine Sulfate (Morphine) 2 mg SLOW IVP Q1H PRN PRN Reason: BREAKTHROUGH PAIN/Agitation Stop: 09/02/19 22:29 Ccu Electrolyte (Replacement Protocol) 0 each FS PRN PRN PRN Reason: FOR ELECTROLYTE REPLACEMENT Ondansetron HCl (Zofran Odt) 4 mg PO Q6H PRN PRN Reason: Nausea/Vomiting Ondansetron HCl (Zofran) 4 mg IVP Q6H PRN PRN Reason: Nausea/Vomiting Potassium Chloride (K-Dur) 40 meq PO ASDIR PRN PRN Reason: FOR SERUM K+ 2.5 - 3.5 Potassium Chloride (Klor-Con) 40 meq PER TUBE ASDIR PRN PRN Reason: FOR SERUM K+ 2.5-3.5 Propofol (Diprivan) 1,000 mg IV INF PRN; Protocol PRN Reason: TO ACHIEVE GOAL RASS Stop: 09/02/19 22:29 Last Admin: 08/06/19 03:58 Dose: 1,000 mg Propofol (Diprivan Bolus) 20 mg IV Q5MIN PRN PRN Reason: BREAKTHROUGH AGITATION Stop: 09/02/19 22:29 Sodium Chloride (Flush - Normal Saline) 10 ml IVF Q12HR [facility] Last Admin: 08/06/19 10:51 Dose: 10 ml Sodium Chloride (Flush - Normal Saline) 10 ml IVF PRN PRN PRN Reason: Saline Flush Vital Signs & Weight: Vital Signs Temp Pulse Resp Pulse Ox 08/06/19 10:40 127 H 08/06/19 10:00 32 H 08/06/19 08:00 22 H 08/06/19 07:05 110 H 08/06/19 06:00 20 08/06/19 04:00 22 H 08/06/19 03:00 100.3 F H 08/06/19 02:00 20 08/06/19 00:00 30 H 97 Admit Weight 180 lb 12.32 oz Weight 186 lb 8.177 oz - Physical Exam General: other (Intubated, unresponsive on no sedation.) HEENT: normocephaly Neck: supple neck Cardiac: regular rate and rhythm, no murmur Lungs: clear to auscultation Neuro: other (Unresponsive to pain or sound.) Abdomen: active bowel sounds Skin: clear - Labs Result Diagrams: 08/06/19 04:00 08/06/19 04:00 Troponin/CKMB Troponin I 0.153 ng/mL (< 0.028) H 08/04/19 06:00 - Telemetry Sinus rhythms and dysrhythmias: sinus tachycardia - Assessment/Plan Assessment/Plan: 1. Out of hospital cardiac arrest. 2. PEA/asystole arrest 3. CAD 4. Severe anoxic brain injury 5. Prolongued CPR. PLAN: - LINQ was interrogated. - He had bradycardia and then asystole, it was 15 minutes before any CPR was started and it took about 35 minutes to get a perfusable rhythm back. This suggest a hypoxic episode rather than a cardiac event. - He remains completely unresponsive to any stimuli. - Likely severe anoxic brain injury. - Poor prognosis. - Family will likely withdraw care tomorrow which I think is appropriate.
--- NOTE | 2019-08-06 12:15 | PDOC.PALCO ---
Palliative Care Consult - Consult Details Requesting Physician: Dr Akbar Reason for Consult: family support Family Members Present: , paitent son and his , patient brother - Pertinent HPI 69 year old male that was at home Friday 08/03 and heard him fall in the bathroom and was brought to the emergency room secondary to cardiac arrest. Initial presentation in the home was pulseless activity, spontaneous circulation while enroute to [facility], patient was intubated. No ST elevation identified, unknown etiology for cardiac arrest. Currently in ICU for care, intubated and sedated. Palliative Care consult for family support. - Pertinent PMH CABG x 4 vessels, depression - Social History Smoking Status: Never smoker Smoking: no tobacco exposure Alcohol Use: weekly Drug Use History: none Living Situation: - Medications MAR Reviewed: Yes - Allergies Allergies/Adverse Reactions: Allergies Allergy/AdvReac Type Severity Reaction Status Date / Time No Known Allergies Allergy Verified 08/04/19 00:58 - Subjective Intubated, sedated. ROS:unable to perform 10 point review secondary to current status - Objective Vital Signs: Vital Signs - Most Recent Temp Pulse Resp BP Pulse Ox 98.9 F 127 H 32 H 117/77 97 08/06/19 08:00 08/06/19 10:40 08/06/19 10:00 08/05/19 16:14 08/06/19 00:00 Palliative Performance Scale: 10 - Physical Exam HEENT: moist MMs Deviation from normal: erythema/edema to conjunctivia Deviation from normal: mechanical ventilation Cardiovascular: no significant murmur Gastrointestinal: soft Musculoskeletal: edema present Deviation from normal: no movement Deviation from normal: sedated - Problem List (1) Palliative care encounter Code(s): Z51.5 - ENCOUNTER FOR PALLIATIVE CARE Current Visit: Yes Status: Acute (2) Anoxic brain injury Current Visit: Yes Status: Acute (3) Respiratory failure requiring intubation Code(s): J96.90 - RESPIRATORY FAILURE, UNSP, UNSP W HYPOXIA OR HYPERCAPNIA Current Visit: Yes Status: Acute - Plan/Recommendations Plan: Lengthy conversation with family. shared life review of her relationship with patient, son and patient brother also shared their memories. Discussed poor prognosis. states her emergency room physician and the son and daughter in laws pastors will be here this afternoon at 3 for a time of prayer. Decisions has been made to perform a compassionate extubation 08/07/19. Therapeutic listening. Sid Dawkins RNtool and die machinist communicated with, she will continue to follow for support of the family. [90] minutes spent on this encounter with >50% of the time in counseling and coordination of care. Thank you for this very appropriate consult.
[2019-08-06] MEDS: Acetaminophen 325 MG TAB PO PRN (20:44)
--- NOTE | 2019-08-06 22:34 | PDOC.HOSPP ---
- Subjective non-verbal - Objective Vital Signs & Weight: Vital Signs (12 hours) Temp Pulse Resp BP 08/06/19 22:02 120 H 158/104 H 08/06/19 20:00 102.5 F H 34 H 08/06/19 18:07 127 H 165/109 H 08/06/19 18:00 31 H 08/06/19 16:00 100.9 F H 37 H 08/06/19 15:46 126 H 08/06/19 14:00 43 H 08/06/19 12:00 100.5 F H 37 H 08/06/19 10:40 127 H Weight Admit Weight 180 lb 12.32 oz Weight 186 lb 8.177 oz Most Recent Monitor Data Heart Rate from ECG 126 NIBP 170/112 NIBP BP-Mean 131 Respiration from ECG 43 SpO2 91 I&O: 08/05/19 08/06/19 08/07/19 06:59 06:59 06:59 Intake Total 3354.1 2428.7 920.4 Output Total 1554 1274 2030 Balance 1800.1 1154.7 -1109.6 Result Diagrams: 08/06/19 04:00 08/06/19 04:00 Additional Labs: Accuchecks 08/06/19 08/06/19 08/06/19 17:48 10:51 03:57 POC Glucose 140 H 173 H 170 H 08/05/19 23:50 POC Glucose 178 H Hospitalist ROS - Medication Medications: Active Medications Generic Name Dose Route Start Last Admin Trade Name Freq PRN Reason Stop Dose Admin Acetaminophen 650 mg 08/03/19 22:30 08/06/19 20:44 Tylenol PO 650 mg Q4H PRN Administration Headache/Fever/Mild Pain (1-3) Aspirin 81 mg 08/04/19 09:00 08/06/19 10:50 Ecotrin PO 81 mg DAILY BALBIR Administration Enoxaparin Sodium 40 mg 08/04/19 09:00 08/06/19 20:59 Lovenox SC Not Given BALBIR Famotidine 20 mg 08/04/19 09:00 08/06/19 20:45 Pepcid SLOW IVP 20 mg BID [facility] Administration Potassium Chloride 40 meq/ 100 mls @ 50 mls/hr 08/04/19 05:53 08/06/19 05:30 Device IVPB 100 mls ASDIR PRN Administration FOR SERUM K+ 2.5 - 3.5 Cefepime HCl 1 gm/ Sodium 100 mls @ 200 mls/hr 08/04/19 09:00 08/06/19 20:45 Chloride IVPB 100 mls Q12HR [facility] Administration Dextrose/Sodium Chloride 1,000 mls @ 50 mls/hr 08/05/19 10:00 08/06/19 03:58 D5 1/2 Ns IV 1,000 mls .Q20H [facility] Administration Insulin Human NPH 20 unit 08/05/19 21:00 08/06/19 20:46 Humulin N SC 20 units BID [facility] Administration Insulin Human Regular 0 units 08/05/19 09:50 08/06/19 21:00 Humulin R SC 3 unit .AGGRESSIVE SLIDING PRN Administration Aggressive Sliding Scale Lorazepam 2 mg 08/03/19 22:29 08/05/19 12:49 Ativan SLOW IVP 09/02/19 22:29 2 mg Q1H PRN Administration Breakthrough agitation Metoprolol Tartrate 2.5 mg 08/05/19 06:46 08/06/19 14:48 Lopressor IVP 2.5 mg Q4H PRN Administration To Control Heart Rate Propofol 1,000 mg 08/03/19 22:29 08/06/19 20:44 Diprivan IV 09/02/19 22:29 1,000 mg INF PRN Administration TO ACHIEVE GOAL RASS Protocol Sodium Chloride 10 ml 08/04/19 09:00 08/06/19 20:46 Flush - Normal Saline IVF 10 ml Q12HR [facility] Administration - Exam General - other findings: Intubated, non-interactive. Heart: RRR, no murmur, no gallops, no rubs, normal peripheral pulses Respiratory: rales, tachypneic Gastrointestinal: soft, non-distended Skin: normal turgor Neurological - other findings: No spont movement, no response, no reflexes. Psychiatric - other findings: Comatose Hosp A/P (1) Alcohol intoxication Status: Acute (2) Anoxic brain injury Status: Acute (3) Respiratory failure requiring intubation Code(s): J96.90 - RESPIRATORY FAILURE, UNSP, UNSP W HYPOXIA OR HYPERCAPNIA Status: Acute - Plan No evidence of any recovery. Has a little brainstem drive, but no evidence of cerebral function. Discussed with Cardiology. Patient had a LINQ recorder. Report indicated a prolonged bradycardia deteriorating to asystole. Prolonged asystole consistent with findings of severe anoxic brain injury. Likely some shock liver as well. Family is aware of the situation and are planning to extubate in the morning.
[2019-08-07] MEDS: Metoprolol Tartrate 5 MG/5 ML VIAL IVP PRN ×2 (01:06→05:15)
[2019-08-07] MEDS: Acetaminophen 325 MG TAB PO PRN (01:06)
[2019-08-07 04:09] VITALS: TEMP 102.3
[2019-08-07] MEDS: Dextrose 5 %-0.45 % NaCl 1,000 ML IV SCH (04:23)
[2019-08-07 04:39] LABS: #Lymphocytes 1.1 thou/uL (1.20-3.40); #Monocytes 0.9 thou/uL (0.11-0.59); %Eosinophils 0.2 % (0.0-10.0); %Lymphocytes 7.6 % (21.0-51.0); %Monocytes 6.6 % (0.0-10.0); %Neutrophils 85.6 % (42.0-75.0); Hemoglobin 9.5 g/dL (14.0-18.0); Mean Corpuscular HGB CONC 35.2 g/dL (32.0-36.0); Mean Corpuscular Hemoglobin 34.7 pg (27.0-31.0); Mean Corpuscular Volume 98.8 fL (78.0-98.0); Mean Platelet Volume 9.8 fL (7.4-10.4); Platelet Count 88 thou/uL (130-400); RBC Distribution Width 12.8 % (11.5-14.5); Red Blood Cell (RBC) Count 2.73 mill/uL (4.70-6.10); White Blood Cell (WBC) Count 14.1 thou/uL (4.8-10.8)
[2019-08-07 05:00] LABS: ALT (SGPT) 85 U/L (8-55); AST (SGOT) 142 U/L (5-34); Albumin 3.5 g/dL (3.4-4.8); Alkaline Phosphatase 84 U/L (40-150); Anion Gap 11 mmol/L (10-20); BUN (Urea Nitrogen) 19 mg/dL (8.4-25.7); Bilirubin, Total 0.7 mg/dL (0.2-1.2); Calc. Creatinine Clearance 77 mL/min (70-130); Calcium 9.1 mg/dL (7.8-10.44); Carbon Dioxide 24 mmol/L (23-31); Chloride 106 mmol/L (98-107); Estimated GFR-MDRD 67; Globulin 2.4 g/dL (2.4-3.5); Glucose 165 mg/dL (80-115); Potassium 3.2 mmol/L (3.5-5.1); Protein, Total 5.9 g/dL (5.8-8.1); Sodium 138 mmol/L (136-145)
[2019-08-07 05:27] VITALS: BMI 27.0
[2019-08-07] MEDS: Propofol 1,000 MG/100 ML VIAL IV PRN (06:35)
[2019-08-07] MEDS: Potassium Chloride 40 MEQ in Premix Bag 1 BAG IVPB PRN (06:35)
[2019-08-07] MEDS: Insulin Regular 300 UNITS/3 ML VIAL SC PRN (06:36)
[2019-08-07 06:49] VITALS: BP 187/114
--- NOTE | 2019-08-07 08:44 | RAD ---
SINGLE VIEW CHEST: HISTORY: Pneumonia. COMPARISON: 08/06/2019 FINDINGS: A single view of the chest shows a normal sized cardiomediastinal silhouette. Lines and tubes are un changed in position. The patient is status post sternotomy. IMPRESSION: Stable examination. POS: [facility]
[2019-08-07] MEDS: Aspirin 81 mg Enteric Coated Tablet PO SCH (09:00)
[2019-08-07] MEDS: Cefepime 1 GM in Sodium Chloride 0.9% 100 ML IVPB SCH (09:00)
--- NOTE | 2019-08-07 09:04 | PRG ---
DATE OF SERVICE: 08/07/2019 TIME SPENT: 35 minutes of critical time. SUBJECTIVE: The patient remains intubated on mechanical ventilation. He has no discernible neurologic activity other than spontaneous respirations and his gag reflex. OBJECTIVE: VITAL SIGN: Temperature 102.3, pulse 122, blood pressure 169/116. A 24-hour intake 2001, output 3515. HEENT: Eyes, deviated upward. NECK: No JVD. CHEST: Clear anteriorly. CARDIAC: S1 and S2, tachycardic. ABDOMEN: Soft. EXTREMITIES: Postured legs. LABORATORY DATA: Sodium 138, potassium 3.2, chloride 106, CO2 of 24, BUN 19, creatinine 1.1, glucose 165, AST 142, ALT 85. White blood cell count 14, hematocrit 27, and platelet count 88. IMAGING STUDIES: EEG yesterday showed diffuse slowing. The event monitor was reported by Dr. Ma showing a total of 50 minutes asystole and then of 35 minutes of compression before a rhythm was achieved. ASSESSMENT: 1. Anoxic brain injury with no evidence of recovery. 2. Status post prolonged cardiopulmonary resuscitation. 3. Fever. PLAN: I am anticipating the family withdrawing care today. There is no hope for functional recovery in this patient, and I think they understand that. Job ID: [id number]
--- NOTE | 2019-08-08 03:07 | DIS ---
DATE OF ADMISSION: 08/03/2019 DATE OF DISCHARGE: 08/07/2019 DISCHARGE DIAGNOSES: 1. Anoxic brain injury. 2. Prolonged cardiopulmonary resuscitation. 3. Acute alcohol intoxication. 4. Severe metabolic acidosis. 5. Hypokalemia. 6. Coronary artery disease, status post 4-vessel CABG. 7. Hyperlipidemia. 8. Hypertension. 9. Hypothyroidism. HISTORY OF PRESENT ILLNESS: This patient is a 69-year-old male, who was apparently in the shower when his apparently heard a fall. When she found him, the patient was not responsive. She called family and then ambulance. The patient was subsequently resuscitated with ROSC and brought to the emergency department. He was intubated and ROSC showed no evidence of response at that time. EKG showed sinus tach with AV block. CT abdomen and pelvis was benign. CT brain benign. CT chest and thorax with no PE. There were rib fractures present bilaterally. LABORATORY DATA: White count was 11.4, pH 7.26. Alcohol level was 297. Then further discussion with the patient's family, it was found the patient had routinely drank 3-4 glasses of wine per day. He had had some dental surgery the week prior and was taking some pain medications and likely there was some combination of these two that may have led to the patient's apneic episode he had. He remained on the ventilator with IV fluids and bicarbonates to address his severe metabolic acidosis. He was seen promptly by Cardiology, where he underwent a heart catheterization revealing no evidence of significant coronary artery disease to account for this episode. The echocardiogram was performed, which revealed an EF of 55% to 60% with some hypertrophied septum and paradoxical septal motion. Unfortunately, the patient continued to show no recovery of brain function. He did have some slight elevation of his LFTs consistent with shock liver. However, the patient was discovered, had had a LINQ recorder placed previously by Dr. aM. Dr. Ma was able to obtain the printout from the LINQ recorder at the time of the patient's episode and it was appeared that he had had a significant bradycardia with asystole, likely due to apnea. The patient had a prolonged period of asystole of about 15 minutes before CPR was actually initiated and 35 minutes before he had a perfusable rhythm. Therefore, it was felt fairly certain that the exam findings consistent with severe anoxic brain injury were appropriate. The patient's family was counseled through this process and ultimately understood well the patient's anoxic brain injury and made the decision to terminally extubate. The patient and family were seen by Palliative Care and ultimately, the patient was extubated with the family care to be present and the patient subsequently did at 10:41 only 5 minutes after being extubated. Job ID: [id number]
--- NOTE | 2019-08-09 09:46 | PQF ---
[employer] SALAS Feliciano KATHARINE HOROWITZ MD [id number] CLINICAL DOCUMENTATION CLARIFICATION FORM: POST DISCHARGE Addendum to original discharge summary date: ____ Late entry note date: 08/10/2019 DATE: 08/09/2019 ATTN: KATHARINE HOROWITZ MD Please exercise your independent, professional judgment in responding to the clarification form. Clinical indicators are provided on the bottom of this form for your review Please check appropriate box(s): [ ] Cardiac arrest due to Alcohol intoxication [ ] Cardiac arrest due to Acute respiratory failure [ ] Cardiac arrest due to liver shock [ ] Cardiac arrest unspecified cause [x ] Other diagnosis Cardiac arrest likely due to a combination of prescribed opioid use and acute alcohol intoxication. [ ] Unable to determine For continuity of documentation, please document condition throughout progress notes and discharge summary. Thank You. CLINICAL INDICATORS - SIGNS / SYMPTOMS / LABS - s/p cardiac arrest, which we now suspect may have been due to respiratory arrest- Progress note, 08/05, Yesi Manuel MD - Cardiorespiratory arrest unclear etiology-H&P, 08/04, Rex Boyd MD - Respiratory failure due to cardiorespiratory failure arrest- H&P, 08/04, Rex Boyd MD - could be sec to shock liver due to respiratory arrest- H&P, 08/04, Rex Boyd MD - metabolic acidosis likely sec to cardiac arrest, lactic acidosis- H&P, 08/04, Rex Boyd MD - RISK FACTORS - Severe Anoxic brain injury-Hospital Progress note, 08/06, KATHARINE HOROWITZ MD - Alcohol poisoning in conjunction with opioid use-Progress note, 08/05, Raffy Brown MD - DKA-Progress note, 08/05, Raffy Brown MD - Acute alcohol intoxication-Progress note, 08/05, Raffy Brown MD TREATMENTS: - heart catheterization- DS, 08/08, KATHARINE HOROWITZ MD - LINQ recorder-DS, 08/08, KATHARINE HOROWITZ MD - CPR-DS, 08/08, KATHARINE HOROWITZ MD (This form is maintained as a part of the permanent medical record) 2014 [employer]. All Rights Reserved [employer] ViewerIsaac Nolan [ not provided] [not provided] MTDD
--- NOTE | 2019-08-10 10:01 | EEG ---
Referring Physician: Allison MARTINEZ EEG # [id number] TEST TYPE: ROUTINE PORTABLE INPATIENT REPORT: AN EEG USING THE [employer] TEN-TWENTY SYSTEM OF ELECTRODE PLACEMENT WAS PERFORMED. The best waking background is a low amplitude alpha frequency. This was poorly maintained and symmetric theta frequencies were seen over both hemispheres when the patient relaxed. Photic stimulation was unremarkable. No epileptiform features were present. IMPRESSION: THIS IS AN ABNORMAL STUDY FOR THE FINDINGS OF DIFFUSE SLOWING CONSISTENT WITH A DIFFUSE ENCEPHALOPATHIC PROCESS. [employer]el Tractor Engine Mechanic: [employer] Internship: EEG.ALEXANDRA HANCOCK
--- NOTE | 2019-08-11 15:47 | EKG ---
Test Reason : Blood Pressure : / mmHG Vent. Rate : 117 BPM Atrial Rate : 117 BPM P-R Int : 202 ms QRS Dur : 092 ms QT Int : 320 ms P-R-T Axes : 056 -16 -79 degrees QTc Int : 446 ms Sinus tachycardia Possible Left atrial enlargement Marked ST abnormality, possible inferior subendocardial injury Marked ST abnormality, possible anterolateral subendocardial injury Abnormal ECG ST elevation, V1 Diffuse ST depression Confirmed by DIONNE FERRARI ([id number]), publishing editor YONATHAN PAINTER ([id number]) on 08/11/2019 3:47:33 PM Referred By: Confirmed By:DIONNE FERRARI
--- NOTE | 2019-08-11 15:52 | EKG ---
Test Reason : Blood Pressure : / mmHG Vent. Rate : 133 BPM Atrial Rate : 133 BPM P-R Int : 210 ms QRS Dur : 092 ms QT Int : 306 ms P-R-T Axes : 077 -03 264 degrees QTc Int : 455 ms Sinus tachycardia with 1st degree A-V block Possible Left atrial enlargement Septal infarct , age undetermined Marked ST abnormality, possible inferior subendocardial injury Marked ST abnormality, possible anterolateral subendocardial injury Abnormal ECG Septal ST elevation-WI Suspect LAD Confirmed by DIONNE FERRARI ([id number]), dictionary editor YONATHAN PAINTER ([id number]) on 08/11/2019 3:52:26 PM Referred By: Confirmed By:DIONNE FERRARI
--- NOTE | 2019-08-11 15:53 | EKG ---
Test Reason : Blood Pressure : / mmHG Vent. Rate : 133 BPM Atrial Rate : 133 BPM P-R Int : 000 ms QRS Dur : 102 ms QT Int : 390 ms P-R-T Axes : 000 009 066 degrees QTc Int : 580 ms Sinus tachycardia Septal infarct , age undetermined Abnormal ECG Confirmed by DIONNE FERRARI ([id number]), technical editor YONATHAN PAINTER ([id number]) on 08/11/2019 3:52:50 PM Referred By: Confirmed By:DIONNE FERRARI
== END 2019-08-07 10:42 | disposition expired | DRG 896 ==
LOC: ERS 20:05 → CCU 23:34
PROVIDERS: ADMIT Hospitalist; ATTEND Hospitalist
PROC: 4A023N7 Measurement of Cardiac Sampling and Pressure, Left Heart, Percutaneous Approach (ICD-10-PCS; principal; 2019-08-03)
PROC: B2111ZZ Fluoroscopy of Multiple Coronary Arteries using Low Osmolar Contrast (ICD-10-PCS; 2019-08-03)
PROC: 5A12012 Performance of Cardiac Output, Single, Manual (ICD-10-PCS; 2019-08-03)
PROC: 5A1945Z Respiratory Ventilation, 24-96 Consecutive Hours (ICD-10-PCS; 2019-08-04)
DX: F10.129 Alcohol abuse with intoxication, unspecified (principal); J96.01 Acute respiratory failure with hypoxia; K72.00 Acute and subacute hepatic failure without coma; E11.10 Type 2 diabetes mellitus with ketoacidosis without coma; N17.9 Acute kidney failure, unspecified; G93.1 Anoxic brain damage, not elsewhere classified; E87.2 Acidosis; I46.9 Cardiac arrest, cause unspecified; Z51.5 Encounter for palliative care; Z66 Do not resuscitate; I25.10 Atherosclerotic heart disease of native coronary artery without angina pectoris; E87.6 Hypokalemia; F32.9 Major depressive disorder, single episode, unspecified; E78.5 Hyperlipidemia, unspecified; I10 Essential (primary) hypertension; E03.9 Hypothyroidism, unspecified; T40.2X5A Adverse effect of other opioids, initial encounter; F11.90 Opioid use, unspecified, uncomplicated; G47.30 Sleep apnea, unspecified; I44.0 Atrioventricular block, first degree; W18.39XA Other fall on same level, initial encounter; Z95.1 Presence of aortocoronary bypass graft; Y92.091 Bathroom in other non-institutional residence as the place of occurrence of the external cause; Z79.4 Long term (current) use of insulin; Z86.73 Personal history of transient ischemic attack (TIA), and cerebral infarction without residual deficits; Z79.899 Other long term (current) drug therapy
CPT/HCPCS: 36415; 36416; 36556; 51702; 70450; 71045; 71275; 74177; 80048; 80053; 80306; 80307; 81003; 81015; 82010; 82550; 82805; 83605; 83690; 83735; 83880; 84443; 84484; 85025; 85610; 85730; 86850; 86900; 86901; 87040; 87086; 93005; 93306; 94002; 94003; 95816; 95819; 96365; 96366; 96367; 96368; 96375; 96376; 99292; J0171; J0692; J0696; J1644; J1650; J1815; J2001; J2060; J2704; J3010; J3370; J3475; J3480; J3490; J7050; Q9966; S0028